=== PATIENT | male | born 2000 | race Caucasian/White ===

== ENCOUNTER 2019-06-19 22:54 | Emergency (ER) | payer OTHER ==
[~2019-06-19] VITALS: Ht 175.2 cm; Wt 59.0 kg
== END 2019-06-20 00:45 | disposition home or self-care (01) ==
LOC: ED 22:54
DX: S16.1XXA Strain of muscle, fascia and tendon at neck level, initial encounter (principal); S09.90XA Unspecified injury of head, initial encounter; M54.6 Pain in thoracic spine; F17.200 Nicotine dependence, unspecified, uncomplicated; W10.8XXA Fall (on) (from) other stairs and steps, initial encounter; Y93.89 Activity, other specified; Y92.89 Other specified places as the place of occurrence of the external cause; Y99.8 Other external cause status